=== PATIENT | female | born 1960 | race Caucasian/White ===

== ENCOUNTER → 2018-05-19 | Outpatient (CLI) | payer OTHER | LOC: M.ULTRA 09:00 | DX: R10.2 Pelvic and perineal pain (principal) ==

== ENCOUNTER → 2018-09-15 | Outpatient (CLI) | payer BC | LOC: M.RAD 10:20 | DX: N63.10 Unspecified lump in the right breast, unspecified quadrant (principal) ==

== ENCOUNTER → 2021-06-11 | Outpatient (CLI) | payer BC ==
[~2021-06-11] MED LIST: BUPROPION HCL150 M1 PO; LIPITOR 10 MG10 M1 PO; MELOXICAM15 MG PO; NORCO5 PO; VALACYCLOVIR500 MG PO; VALSARTAN-HCTZ1 EAC1 PO
== END ==
LOC: M.LAB 11:42
PROVIDERS: ATTEND Surgery
DX: Z20.822 Contact with and (suspected) exposure to COVID-19 (principal)

== ENCOUNTER → 2021-06-12 | Day surgery (SDC) | payer BC ==
--- NOTE | ~2021-06-12 | OP ---
[facility] [address] [place] [address] OPERATIVE REPORT Name: CORNELIUS MCMAHON Room: [facility] M.R.#: [id number] Admission: 06/12/21 Attend Phys: Mark Batista Discharge: Date of : 62 Report #: [id number] THIS REPORT FOR: cc: Noe Irving Vincent R. DO Patterson,Mark Alvarez MD ~ DATE OF SURGERY: 06/12/2021 PREOPERATIVE DIAGNOSIS: Right inguinal hernia. POSTOPERATIVE DIAGNOSIS: Bilateral inguinal hernias. OPERATION: Laparoscopic repair of bilateral inguinal hernias with mesh. SURGEON: Mark Batista MD ANESTHESIA: General. ESTIMATED BLOOD LOSS: Minimal. SPECIMENS: None. DESCRIPTION OF PROCEDURE: After informed consent was obtained, the patient was brought to the operating room and placed supine. SCDs were placed and working, preoperative antibiotics were administered, general anesthesia was induced. The abdomen was prepped and draped in the usual sterile fashion. A 10 mm incision was made below the umbilicus. Fascia was incised and a trocar was placed. Pneumoperitoneum was established. Left and right lower quadrant 5 mm trocars were placed. The patient was placed in the Trendelenburg position. The peritoneum at the right ASIS was scored. Peritoneum was incised and reflected inferiorly. I identified the pubic bone. Identified the round ligament. She had an indirect inguinal hernia. This was fully reduced. I then inserted a large Bard 3DMax midway mesh. It was tacked to Godfrey's ligament with 2 absorbable tacks. I then reapproximated the peritoneum with the tacker as well. Attention was then directed to the left side. There was a left inguinal hernia. Again, the peritoneum was scored. Peritoneum was incised and reflected inferiorly. I identified the pubic bone. I identified the round ligament. She had a small indirect hernia. This was a small hernia on this side. A medium Bard 3DMax mesh was inserted. It was tacked to Godfrey's ligament with 2 absorbable tacks. I then reapproximated the peritoneum with a V-Loc suture. There was 100% coverage of the mesh. The area was then instilled with 10 mL of 0.5% Marcaine on each side. The ports were removed under direct vision. The fascia at the umbilicus was closed with a [id number]-arjto 0 [place] [address] OPERATIVE REPORT Name: CORNELIUS MCMAHON KASSY Room: [facility]#: [id number] Admission: 06/12/21 Attend Phys: Mark Batista Discharge: Date of : 62 Report #: [id number] closed with 4-0 Monocryl. Incisions were dressed with Steri-Strips. COMPLICATIONS: None. DISPOSITION: The patient was taken to recovery in satisfactory condition. By: [id number] Batista MD /edvin
[2021-06-12 06:44] LABS: HEMATOCRIT 39.7 % (37.0-47.0); HEMOGLOBIN 13.5 gm/dL (12.0-15.0); MCH 30.7 pg (26.0-34.0); MCV 90.2 fL (80.0-100.0); MPV 7.9 fl. (7.2-11.1); RBC 4.4 mil/uL (4.20-5.00); RDW-CV 14.1 % (10.5-14.5); WBC 6.7 thou/uL (4.0-11.0)
[2021-06-12 06:51] LABS: CALCIUM 9.7 mg/dL (8.5-10.1); CREATININE 0.8 mg/dL (0.6-1.3); POTASSIUM 3.8 mmol/L (3.5-5.1)
--- NOTE | 2021-06-12 11:18 | EKG ---
[place] [address] ELECTROCARDIOGRAM REPORT Name: SALOMECORNELIUS KASSY Room: [facility].#: [id number] Admission: 06/12/21 Attend Phys: Mark Flores Discharge: Date of : 62 Date of Service: 06/12/21640 Report #: [id number] THIS REPORT FOR: //name// [facility] Test Date: 2021-06-12 Test Time: 06:41:29 Pat Name: CORNELIUS MCMAHON Department: Room: Gender: F Information Manager: : 1960 Requested By: Mark Batista Order Number: [id number] Reading MD: Jeramie Varela Measurements Intervals [place] Rate: 70 P: 21 LA: 142 QRS: -2 QRSD: 108 T: 28 QT: 404 QTc: 436 Interpretive Statements Sinus rhythm Probable left ventricular hypertrophy No previous ECG available for comparison Electronically Signed On 06-12-2021 11:18:11 CDT by Jeramie Varela [email or web address] <ELECTRONICALLY SIGNED> By: Jeramie Varela MD, [facility] 06/12/21 1118 Jeramie Varela MD, [facility] /EPI
== END | disposition home or self-care (01) ==
LOC: M.SUR 06:13
PROVIDERS: ATTEND Surgery
DX: K40.20 Bilateral inguinal hernia, without obstruction or gangrene, not specified as recurrent (principal); R10.31 Right lower quadrant pain; R10.32 Left lower quadrant pain; Z79.899 Other long term (current) drug therapy

== ENCOUNTER → 2021-10-23 | Outpatient (CLI) | payer BC | LOC: M.RAD 10:00 | PROVIDERS: ATTEND Family Medicine | DX: Z12.31 Encounter for screening mammogram for malignant neoplasm of breast (principal) ==